=== PATIENT | female | born 1990 | race Caucasian/White ===

== ENCOUNTER 2019-05-11 05:41 | Inpatient (IN) ==
[2019-05-11] MEDS ORDERED: BUTORPHANOL 2 MG/ML VIAL IV PRN (05:49)
[2019-05-11] MEDS ORDERED: MEPERIDINE 50 MG/1 ML VIAL IV PRN (05:49)
[2019-05-11] MEDS ORDERED: MEPERIDINE 25 MG/1 ML VIAL IV PRN (05:49)
[2019-05-11] MEDS ORDERED: OXYTOCIN/LR 20 UNIT/1,000 ML BAG IV SCH (06:00)
[2019-05-11] MEDS: LACTATED RINGERS 1,000 ML IV SCH ×4 (06:05→18:20)
[2019-05-11 06:18] LABS: Basophils % 0.5 % (0.0-0.8); Eosinophils # 0.1 10*3/uL (0.0-0.87); Hemoglobin 11.7 GM/DL (12.0-16.0); Immature Granulocytes % 0.8 %; Immature Granulocytes Absolute 0.05 #; Lymphocytes % 17.1 % (21.3-54.2); Mean Corpuscular HGB Conc 32.5 GM/DL (32-36); Mean Corpuscular Volume 91.1 FL (87-102); Mean Platelet Volume 10.2 FL (9.6-12.0); Neutrophils % 74.6 % (38.7-73.9); Platelet Count 250 T/CUMM (130-400); Red Blood Count 3.95 MC/CUMM (3.8-5.5); Red Cell Distribution Width 13.2 % (9.3-17.3)
[2019-05-11 06:39] LABS: Alanine Aminotransferase 17 U/L (13-56); Albumin 2.5 G/DL (3.4-5.0); Alkaline Phosphatase 141 U/L (45-117); Aspartate Amino Transferase 18 U/L (0-37); Bilirubin,Total < 0.39 MG/DL (0.2-1.0); Blood Urea Nitrogen 11 MG/DL (7-18); Calcium 8.6 MG/DL (8.5-10.1); Estimated Glom Filtration Rate 107 ML/MIN; Glucose 118 MG/DL (74-106); Osmolality,Calculated 272.8 MOS/KG (273-304); Total Protein 8.1 G/DL (6.4-8.3)
[2019-05-11] MEDS ORDERED: diphenhydrAMINE 50 MG/1 ML VIAL IV PRN ×2 (10:05)
[2019-05-11] MEDS ORDERED: FAMOTIDINE 20 MG/2 ML VIAL IV ONE (10:05)
[2019-05-11] MEDS ORDERED: ePHEDrine 50 MG/ML AMP IV PRN (10:05)
[2019-05-11] MEDS ORDERED: NALOXONE 0.4 MG/ML VIAL IV PRN (10:05)
[2019-05-11] MEDS ORDERED: ONDANSETRON 4 MG/2 ML VIAL IV ONE (10:05)
[2019-05-11] MEDS ORDERED: CITRIC ACID/SODIUM CITRATE 30 ML UDCUP PO ONE (10:05)
[2019-05-11] MEDS ORDERED: PROMETHAZINE 25 MG/1 ML VIAL IM ONE (10:05)
[2019-05-11] MEDS ORDERED: hydrOXYzine HCL 25 MG/1 ML VIAL IM PRN (10:05)
[2019-05-11] MEDS: fentaNYL 2 MCG/ROPIV 0.2% EPID 100 ML EPIDURAL SCH (10:48)
[2019-05-11 12:36] LABS: Apearance,Urine CLEAR (Clear); Bacteria,Urine Occasional /HPF (Few); Bilirubin,Urine Negative (Negative); Blood, Urine Negative (Negative); Glucose,Urine (UA) Negative (Negative); Ketones,Urine Negative (Negative); Mucus,Urine Occasional /LPF (Occasional); Nitrite,Urine Negative (Negative); Protein,Urine Negative; Squamous Epithelial Cell,Urine Occasional /HPF (0-10); Urine Color Straw (Yellow); Urine Specific Gravity 1.006 (1.001-1.035); Urine Urobilinogen < 2.0 EU/DL (0.2-1.0); WBC,Urine <1 /HPF (0-6)
[2019-05-11] MEDS: ONDANSETRON 4 MG/2 ML VIAL IV PRN ×2 (13:22→19:37)
[2019-05-11] MEDS ORDERED: TRANEXAMIC ACID 1,000 MG/10 ML VIAL ONE (16:38)
[2019-05-11] MEDS ORDERED: miSOPROStoL 200 MCG TABLET ONE (16:38)
[2019-05-11] MEDS ORDERED: LIDOCAINE 1% 50 ML VIAL ONE (16:38)
[2019-05-11] MEDS ORDERED: METHYLERGONOVINE 0.2 MG/1 ML AMP ONE (16:39)
[2019-05-11] MEDS ORDERED: BISACODYL 10 MG SUPP RECTAL PRN (21:08)
[2019-05-11] MEDS ORDERED: LANOLIN 50% CREAM 0.3 OZ TUBE TOP PRN (21:08)
[2019-05-11] MEDS ORDERED: HYDROCORTISONE 2.5% RECTAL CREAM 30 GM TUBE TOP PRN (21:08)
[2019-05-11] MEDS ORDERED: ACETAMINOPHEN 325 MG TABLET PO PRN (21:08)
[2019-05-11] MEDS ORDERED: WITCH HAZEL PADS 100/JAR TOP PRN (21:08)
[2019-05-11] MEDS ORDERED: DIPH/TET/ACEL PERT BOOSTER VACCINE 0.5 ML VIAL IM ONE (21:08)
[2019-05-11] MEDS ORDERED: MEASLES/MUMPS/RUBELLA VACCINE 0.5 ML VIAL SUBCUT ONE (21:08)
[2019-05-11] MEDS ORDERED: BENZOCAINE 20%/MENTHOL 0.5% SPRAY 56 GM CAN TOP PRN (21:08)
[2019-05-11] MEDS ORDERED: RHO(D) IMMUNE GLOBULIN 300 MCG SYRINGE IM ONE (21:08)
[2019-05-11] MEDS ORDERED: OXYTOCIN/LR 20 UNIT/1,000 ML BAG IV ONE (22:27)
[2019-05-12] MEDS: IBUPROFEN 800 MG TABLET PO PRN ×2 (02:00→17:05)
[2019-05-12] MEDS: LACTATED RINGERS 1,000 ML IV SCH ×2 (04:47)
[2019-05-12] MEDS: fentaNYL 2 MCG/ROPIV 0.2% EPID 100 ML EPIDURAL SCH (04:48)
[2019-05-12 05:57] LABS: Basophils % 0.1 % (0.0-0.8); Eosinophils % 0.4 % (0.00-10.9); Hematocrit 27.8 VOL% (35.7-47.0); Immature Granulocytes % 0.4 %; Immature Granulocytes Absolute 0.04 #; Lymphocytes # 1.1 10*3/uL (1.4-4.0); Mean Corpuscular HGB Conc 32.4 GM/DL (32-36); Mean Corpuscular Volume 90.8 FL (87-102); Mean Platelet Volume 10.6 FL (9.6-12.0); Monocytes % 6.5 % (1.7-12.7); Neutrophils % 82.6 % (38.7-73.9); Platelet Count 224 T/CUMM (130-400); Red Blood Count 3.06 MC/CUMM (3.8-5.5); Red Cell Distribution Width 13.1 % (9.3-17.3); White Blood Count 10.5 T/CUMM (4-12)
[2019-05-12] MEDS: MULTIVITAMIN (PRENATAL) TABLET PO SCH (08:21)
[2019-05-12] MEDS: FERROUS SULFATE 325 MG TABLET PO SCH (08:21)
[2019-05-12] MEDS: DOCUSATE SODIUM 100 MG CAPSULE PO SCH ×2 (08:21→20:26)
[2019-05-13] MEDS: IBUPROFEN 800 MG TABLET PO PRN (03:45)
[2019-05-13 07:28] VITALS: BP 107/57
[2019-05-13] MEDS: FERROUS SULFATE 325 MG TABLET PO SCH (08:13)
[2019-05-13] MEDS: DOCUSATE SODIUM 100 MG CAPSULE PO SCH (08:13)
[2019-05-13] MEDS: MULTIVITAMIN (PRENATAL) TABLET PO SCH (08:13)
== END 2019-05-13 13:35 | disposition home or self-care (01) | DRG 768 ==
LOC: N.LDOUT 05:41 → N.LD 05:44 → N.OB 05-12 00:25
PROVIDERS: ADMIT Obstetrics & Gynecology; ATTEND Obstetrics & Gynecology

== ENCOUNTER 2022-03-19 18:25 | Inpatient (IN) ==
[2022-03-19] MEDS ORDERED: LACTATED RINGERS 500 ML IV PRN (19:08)
[2022-03-19] MEDS ORDERED: OXYTOCIN/LR 20 UNIT/1,000 ML BAG IV ONE (19:08)
[2022-03-19] MEDS ORDERED: METHYLERGONOVINE 0.2 MG/1 ML AMP IM PRN (19:08)
[2022-03-19] MEDS ORDERED: miSOPROStoL 200 MCG TABLET RECTAL PRN (19:08)
[2022-03-19] MEDS ORDERED: ONDANSETRON 4 MG/2 ML VIAL IV PRN (19:08)
[2022-03-19] MEDS ORDERED: TRANEXAMIC ACID 1,000 MG in SODIUM CHLORIDE 0.9% 100 ML IV PRN (19:08)
[2022-03-19] MEDS ORDERED: BUTORPHANOL 2 MG/ML VIAL IV PRN (19:08)
[2022-03-19] MEDS ORDERED: CARBOPROST TROMETHAMINE 250 MCG/ML AMP IM PRN (19:08)
[2022-03-19] MEDS ORDERED: MEPERIDINE 25 MG/1 ML VIAL IV PRN (19:14)
[2022-03-19] MEDS ORDERED: LACTATED RINGERS 1,000 ML IV SCH (19:30)
[2022-03-19 19:46] LABS: Basophils % 0.3 % (0.0-0.8); Eosinophils % 0.7 % (0.00-10.9); Hematocrit 32.5 VOL% (35.7-47.0); Hemoglobin 10.7 GM/DL (12.0-16.0); Immature Granulocytes % 0.9 %; Immature Granulocytes Absolute 0.05 #; Lymphocytes # 0.7 10*3/uL (1.4-4.0); Lymphocytes % 11.4 % (21.3-54.2); Mean Corpuscular HGB Conc 32.9 GM/DL (32-36); Mean Corpuscular Volume 93.7 FL (87-102); Mean Platelet Volume 10.9 FL (9.6-12.0); Monocytes # 0.4 10*3/uL (0.11-0.8); Neutrophils % 79.7 % (38.7-73.9); Platelet Count 251 T/CUMM (130-400); Red Blood Count 3.47 MC/CUMM (3.8-5.5); Red Cell Distribution Width 13.7 % (9.3-17.3); White Blood Count 5.9 T/CUMM (4-12)
[2022-03-19 19:53] LABS: Protein/Creatinine Ratio,Urine 0.6 RATIO
[2022-03-19 19:53] LABS: Amorphous Crystals,Urine Occasional /HPF (Few); Bacteria,Urine Occasional /HPF (Few); Mucus,Urine Occasional /LPF (Occasional); Protein,Urine 30 mg/dL (Negative); RBC,Urine 5 /HPF (0-4); Squamous Epithelial Cell,Urine Occasional /HPF (0-10); Urine Appearance Clear (Clear); Urine Color Yellow (Yellow); Urine Specific Gravity 1.025 (1.001-1.035)
[2022-03-19 19:54] LABS: Bilirubin,Urine Negative (Negative); Blood, Urine Small mg/dL (Negative); Glucose,Urine (UA) Negative (Negative); Ketones,Urine Negative (Negative); Nitrite,Urine Negative (Negative); Urine Urobilinogen 0.2 eU/dL (<2.0)
[2022-03-19 19:58] LABS: Alanine Aminotransferase 16 U/L (13-56); Albumin 2.4 G/DL (3.4-5.0); Alkaline Phosphatase 130 U/L (45-117); Aspartate Amino Transferase 17 U/L (0-37); Bilirubin,Direct < 0.100 MG/DL (0.0-0.20); Bilirubin,Total < 0.39 MG/DL (0.20-1.00); Blood Urea Nitrogen 7 MG/DL (7-18); Calcium 8.9 MG/DL (8.5-10.1); Carbon Dioxide 19 MMOL/L (21-32); Chloride 111 MMOL/L (98-107); Glucose 102 MG/DL (74-106); Osmolality,Calculated 272.7 MOS/KG (273-304); Potassium 3.4 MMOL/L (3.5-5.1); Sodium 138 MMOL/L (136-145); Total Protein 7.3 G/DL (6.4-8.2); Uric Acid 4.2 MG/DL (2.6-6.0)
[2022-03-19 20:10] LABS: INR 0.9; PT Patient Result 9.9 SECS (10.1-12.1); Partial Thromboplastin Time 26.2 SECS (23.7-32.9)
[2022-03-20] MEDS ORDERED: FAMOTIDINE 20 MG/2 ML VIAL IV ONE ×3 (00:15→07:22)
[2022-03-20] MEDS ORDERED: OXYTOCIN/LR 20 UNIT/1,000 ML BAG IV ONE ×2 (04:05→15:22)
[2022-03-20] MEDS ORDERED: OXYTOCIN/LR 20 UNIT/1,000 ML BAG IV SCH (04:30)
[2022-03-20] MEDS ORDERED: PROMETHAZINE 25 MG/1 ML VIAL IM ONE (07:16)
[2022-03-20] MEDS ORDERED: diphenhydrAMINE 50 MG/1 ML VIAL IV PRN ×2 (07:16)
[2022-03-20] MEDS ORDERED: ePHEDrine 50 MG/ML VIAL IV PRN (07:16)
[2022-03-20] MEDS ORDERED: NALOXONE 0.4 MG/ML VIAL IV PRN (07:16)
[2022-03-20] MEDS ORDERED: LACTATED RINGERS 1,000 ML IV ONE (07:16)
[2022-03-20] MEDS ORDERED: hydrOXYzine HCL 25 MG/1 ML VIAL IM PRN (07:16)
[2022-03-20] MEDS ORDERED: CITRIC ACID/SODIUM CITRATE 30 ML UDCUP PO ONE (07:16)
[2022-03-20] MEDS ORDERED: ePHEDrine 50 MG/ML VIAL ONE (07:21)
[2022-03-20] MEDS ORDERED: CITRIC ACID/SODIUM CITRATE 30 ML UDCUP ONE (07:21)
[2022-03-20] MEDS ORDERED: fentaNYL 2 MCG/ROPIV 0.2% EPID 100 ML EPIDURAL ONE (07:21)
[2022-03-20] MEDS ORDERED: fentaNYL 2 MCG/ROPIV 0.2% EPID 100 ML EPIDURAL SCH (07:30)
[2022-03-20 09:42] LABS: Bacteria,Urine Occasional /HPF (Few); Mucus,Urine Occasional /LPF (Occasional); RBC,Urine 11 /HPF (0-4)
[2022-03-20 09:45] LABS: Bilirubin,Urine Negative (Negative); Blood, Urine Small mg/dL (Negative); Glucose,Urine (UA) Negative (Negative); Ketones,Urine Negative (Negative); Nitrite,Urine Negative (Negative); Protein,Urine Trace mg/dL (Negative); Urine Appearance Clear (Clear); Urine Color Yellow (Yellow); Urine Urobilinogen 0.2 eU/dL (<2.0)
[2022-03-20] MEDS ORDERED: miSOPROStoL 200 MCG TABLET ONE (10:08)
[2022-03-20] MEDS ORDERED: SODIUM CHLORIDE 0.9% 0 ML IV ONE (10:08)
[2022-03-20] MEDS ORDERED: METHYLERGONOVINE 0.2 MG/1 ML AMP ONE (10:08)
[2022-03-20] MEDS ORDERED: CARBOPROST TROMETHAMINE 250 MCG/ML AMP IM ONE (10:08)
[2022-03-20 11:35] LABS: Cord Venous Blood HCO3 19.9 MMOL/L; Cord Venous Blood PCO2 40.9 MMHG
[2022-03-20] MEDS ORDERED: WITCH HAZEL PADS 100/JAR TOP PRN (15:22)
[2022-03-20] MEDS ORDERED: DIPH/TET/ACEL PERT BOOSTER VACCINE 0.5 ML VIAL IM ONE (15:22)
[2022-03-20] MEDS ORDERED: LANOLIN 50% CREAM 0.3 OZ TUBE TOP PRN (15:22)
[2022-03-20] MEDS ORDERED: oxyCODONE/ACETAMINOPHEN 5-325 MG TABLET PO PRN ×2 (15:22)
[2022-03-20] MEDS ORDERED: MEASLES/MUMPS/RUBELLA VACCINE 0.5 ML VIAL SUBCUT ONE (15:22)
[2022-03-20] MEDS ORDERED: ONDANSETRON 4 MG/2 ML VIAL IV PRN (15:22)
[2022-03-20] MEDS ORDERED: RHO(D) IMMUNE GLOBULIN 300 MCG SYRINGE IM ONE (15:22)
[2022-03-20] MEDS ORDERED: BENZOCAINE 20%/MENTHOL 0.5% SPRAY 56 GM CAN TOP PRN (15:22)
[2022-03-20] MEDS ORDERED: ACETAMINOPHEN 325 MG TABLET PO PRN (15:22)
[2022-03-20] MEDS ORDERED: HYDROCORTISONE 2.5% RECTAL CREAM 30 GM TUBE TOP PRN (15:22)
[2022-03-20] MEDS ORDERED: BISACODYL 10 MG SUPP RECTAL PRN (15:22)
[2022-03-20] MEDS: IBUPROFEN 800 MG TABLET PO PRN (18:53)
[2022-03-20] MEDS: DOCUSATE SODIUM 100 MG CAPSULE PO SCH (20:39)
[2022-03-21] MEDS: IBUPROFEN 800 MG TABLET PO PRN ×4 (03:47→20:49)
[2022-03-21 05:51] LABS: Basophils % 0.5 % (0.0-0.8); Eosinophils # 0.1 10*3/uL (0.0-0.87); Eosinophils % 0.9 % (0.00-10.9); Hemoglobin 9.7 GM/DL (12.0-16.0); Immature Granulocytes % 0.3 %; Immature Granulocytes Absolute 0.02 #; Lymphocytes # 0.8 10*3/uL (1.4-4.0); Lymphocytes % 12.5 % (21.3-54.2); Mean Corpuscular HGB Conc 32.3 GM/DL (32-36); Mean Corpuscular Volume 95.8 FL (87-102); Mean Platelet Volume 11.3 FL (9.6-12.0); Monocytes # 0.4 10*3/uL (0.11-0.8); Monocytes % 6.5 % (1.7-12.7); Neutrophils % 79.3 % (38.7-73.9); Platelet Count 204 T/CUMM (130-400); Red Blood Count 3.13 MC/CUMM (3.8-5.5); Red Cell Distribution Width 13.6 % (9.3-17.3); White Blood Count 6.3 T/CUMM (4-12)
[2022-03-21 06:16] LABS: Platelet Estimate Normal
[2022-03-21] MEDS: DOCUSATE SODIUM 100 MG CAPSULE PO SCH ×2 (09:31→20:47)
[2022-03-22] MEDS: DOCUSATE SODIUM 100 MG CAPSULE PO SCH (08:07)
[2022-03-22] MEDS: IBUPROFEN 800 MG TABLET PO PRN (08:08)
[2022-03-22 08:44] VITALS: BP 136/79
== END 2022-03-22 10:50 | disposition home or self-care (01) | DRG 806 ==
LOC: N.LDOUT 18:25 → N.LD 18:27 → N.OB 03-20 13:57
PROVIDERS: ADMIT Specialist; ATTEND Specialist